=== PATIENT | male | born 2005 ===

== ENCOUNTER 2024-11-19 14:02 | Emergency (ER) | payer OTHER, SELFPAY ==
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
--- OUTSIDE RECORDS SUMMARY | 2024-11-19 14:04 | XMS_ITS | Clinical Summary ---
Author Organization [facility] [place] Address [facility] [place] [address] Care Team Providers Care Hands And Dial Inspector Name Role Phone Unknown, Notinfile Primary Care Provider Unavail able Allergies No known active allergies Medications No known medications Active Problems No known active problems Social History Tobacco Use Types Packs/Day Years Used Date Smoking Tobacco: Never Assessed Personal Safety Answer Date Recorded Getting School Help Needed Not on file 07/30 Sex and Gender Information Value Date Recorded Sex Assigned at Not on file Legal Sex Male 12:15 PM COMPONENT TECHNICIAN Gender Identity Not on file Sexual Orientation Not on file Last Filed Vital Signs Vital Sign Reading Time Taken Comments Blood Pressure 140/90 03/25/2023 6:34 PM COMPONENT TECHNICIAN Pulse 89 03/25/2023 6:34 PM COMPONENT TECHNICIAN Temperature 37.7 C (99.9 F) 03/25/2023 6:34 PM COMPONENT TECHNICIAN Respiratory Rate 26 03/25/2023 6:34 PM COMPONENT TECHNICIAN Oxygen Saturation 99% 03/25/2023 6:34 PM COMPONENT TECHNICIAN Inhaled Oxygen Concentration - - Weight 92.1 kg (203 lb) 03/25/2023 6:34 PM COMPONENT TECHNICIAN Height - - Body Mass Index - - Plan of Treatment Health Maintenance Due Date Last Done Comments Depression Screening 2003 Hepatitis C Screening 2003 Meningococcal B Vaccine (2 of 2 - Bexsero SCDM 2-dose series) 09/27/2019 03/29/2019 Regular Well Visit/Exam 18-64 2021 Covid-19 Vaccine ( season) 2024 10/27/2020, 10/06/2020 DTaP/Tdap/Td Vaccine (6 - Td or Tdap) 02/28/2024 02/27/2014, 01/24/2008, 2003, Additional history exists Influenza Vaccine (Season Ended) 2025 02/17/2012 Pneumococcal vaccine <65 Aged Out 004, 2003, 2003 No longer eligible based on patient's age to complete this topic Hepatitis B Screening Completed 01/13/2004 , 2003, 2003, Additional history exists Varicella Vaccines Completed 02/27/2014, 1 , 11/28/2008, Additional history exists HPV Vaccines Completed 03/29/2019, 11/29/2016 Meningococcal Vaccine Completed 03/29/2019, 014 Insurance [employer]US Care Teams Hands And Dial Inspector Relationship Specialty Start Date End Date Unknown, Notinfile PCP - General 03/25/23
--- OUTSIDE RECORDS SUMMARY | 2024-11-19 14:04 | XMS_ITS | Referral Summary ---
Author Organization [facility] Address [address] [place] [id number] Care Team Providers Care Radioisotope Technologist Name Role Phone Unknown, Notinfile Primary Care [...] on file Legal Sex Male 12:15 PM VP INTEGRATION Gender Identity Not on file Sexual Orientation Not on file Last Filed Vital Signs Vital Sign Reading Time Taken Comments Blood Pressure 140/90 03/25/2023 6:34 PM VP INTEGRATION Pulse 89 03/25/2023 6:34 PM VP INTEGRATION Temperature 37.7 C (99.9 F) 03/25/2023 6:34 PM VP INTEGRATION Respiratory Rate 26 03/25/2023 6:34 PM VP INTEGRATION Oxygen Saturation 99% 03/25/2023 6:34 PM VP INTEGRATION Inhaled Oxygen Concentration - - Weight 92.1 kg (203 lb) 03/25/2023 6:34 PM VP INTEGRATION Height - - Body Mass Index - - Plan of Treatment Not on file [place] [address] Care Teams Radioisotope Technologist Relationship Specialty Start Date End Date Unknown, Notinfile PCP - General 03/25/23
--- OUTSIDE RECORDS SUMMARY | 2024-11-19 14:04 | XMS_ITS | Clinical Summary ---
Author Organization [facility] Address [address] [place] [address] Care Team Providers Care B2B Sales Executive Name Role Phone Unavailable Primary Care Provider Unavailabl e Source Comments [facility],non-owned Affiliates and Associated Physician Practices is amultiple site organization consisting of ambulatory clinics and hospital sitesin [place], [place], [place] and [place]. This disclosure is being madepursuant to the Care Everywhere program and may not contain all information available regarding this patient. Last updated 18.[facility] Allergies No known active allergies Medications * Be aware that medications may not be up to date on this document. Alwaysverify current medications with the patient. clindamycin (CLEOCIN) 75 MG/5ML solution 03/08/2016 Act gabrielle chlorhexidine gluconate (HIBICLENS) 4 % solution Apply to affected area 2 times daily 400 mL 3 03/12/2016 Active Active Problems Problem Noted Date Diagnosed Date Ingrown left big toenail 03/12/2016 Social History Tobacco Use Types Packs/Day Years Used Date Smoking Tobacco: Never Assessed Sex and Gender Information Value Date Recorded Sex Assigned at Not on file Legal Sex Male 10:12 AM CDT Gender Identity Not on file Sexual Orientation Not on file Last Filed Vital Signs Vital Sign Reading Time Taken Comments Blood Pressure - - Pulse - - Temperature - - Respiratory Rate - - Oxygen Saturation - - Inhaled Oxygen Concentration - - Weight 70.4 kg (155 lb 3.3 oz) 03/12/2016 9:45 A M CDT Height 169.8 cm (5' 6.85) 03/12/2016 9:45 AM CD T Body Mass Index 24.42 03/12/2016 9:45 AM CDT Plan of Treatment Health Maintenance Due Date Last Done Comments HIV SCREENING 2018 HPV VACCINE (1 - Male 3-dose series) 2018 MENINGOCOCCAL (Group B) VACC INE SHARED DECISION-MAKING (1 of 2 - Standard) 2019 HEPATITIS C SCREENING 12/29/2020 DTAP/TDAP/TD VACCINES (1 - Tdap) 2022 HEPATITIS B VACCINE (1 of 3 - 19+ 3-dose series) 2022 COVID-19 VACCINE (1 - 2023-2 5 season) 2024 DEPRESSION SCREENING 05/16/2024 INFLUENZA VACCINE (Season Ended) 2025 ZOSTER VACCINE (1 of 2) 2053 HIB VACCINE Aged Out No longer eligi ble based on patient's age to complete this topic MENINGOCOCCAL GROUPS A/C/Y/W VACCINE Aged Out No longer eligible b ased on patient's age to complete this topic PNEUMOCOCCAL VACCINE Aged Out No long er eligible based on patient's age to complete this topic Insurance
[2024-11-19 14:36] VITALS: BP 147/83; PULSE 79; RESP 16; TEMP 36.8; O2SAT 98
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
[2024-11-19 16:59] VITALS: BP 140/65; PULSE 87; RESP 18; TEMP 36.9; O2SAT 100
--- OUTSIDE RECORDS SUMMARY | 2024-11-19 17:43 | XMS_ITS | Clinical Summary ---
Author Organization [facility] Address [address] [place] [address] Care Team Providers Care Dag Sprayer Name Role Phone Unavailable Primary Care Provider Unavailabl e Source Comments [facility],non-owned Affiliates and Associated Physician Practices is amultiple site organization consisting of ambulatory clinics and hospital sitesin [place], [place], [place] and [place]. This disclosure is being madepursuant to the Care Everywhere program and may not contain all information available regarding this patient. Last updated 18.[facility] Allergies No known active allergies Medications * [...]
--- OUTSIDE RECORDS SUMMARY | 2024-11-19 17:43 | XMS_ITS | Clinical Summary ---
Author Organization [facility] [place] Address [facility] [place] [address] Care Team Providers Care Sack Repairer Name Role Phone Unknown, Notinfile Primary Care [...] on file Legal Sex Male 12:15 PM PRODUCTION MACHINE COMPUTER OPERATOR Gender Identity Not on file Sexual Orientation Not on file Last Filed Vital Signs Vital Sign Reading Time Taken Comments Blood Pressure 140/90 03/25/2023 6:34 PM PRODUCTION MACHINE COMPUTER OPERATOR Pulse 89 03/25/2023 6:34 PM PRODUCTION MACHINE COMPUTER OPERATOR Temperature 37.7 C (99.9 F) 03/25/2023 6:34 PM PRODUCTION MACHINE COMPUTER OPERATOR Respiratory Rate 26 03/25/2023 6:34 PM PRODUCTION MACHINE COMPUTER OPERATOR Oxygen Saturation 99% 03/25/2023 6:34 PM PRODUCTION MACHINE COMPUTER OPERATOR Inhaled Oxygen Concentration - - Weight 92.1 kg (203 lb) 03/25/2023 6:34 PM PRODUCTION MACHINE COMPUTER OPERATOR Height - - Body Mass Index - [...] Vaccine Completed 03/29/2019, 014 Insurance [employer] [facility] Address: [address] [address] [place] [address] Care Teams Sack Repairer Relationship Specialty Start Date End Date Unknown, Notinfile PCP - General 03/25/23
--- OUTSIDE RECORDS SUMMARY | 2024-11-19 17:43 | XMS_ITS | Referral Summary ---
Author Organization [facility] Address [address] [place] [id number] Care Team Providers Care Financial Operations Clerk Name Role Phone Unknown, Notinfile Primary Care [...] on file Legal Sex Male 12:15 PM LAB ANIMAL TECHNICIAN Gender Identity Not on file Sexual Orientation Not on file Last Filed Vital Signs Vital Sign Reading Time Taken Comments Blood Pressure 140/90 03/25/2023 6:34 PM LAB ANIMAL TECHNICIAN Pulse 89 03/25/2023 6:34 PM LAB ANIMAL TECHNICIAN Temperature 37.7 C (99.9 F) 03/25/2023 6:34 PM LAB ANIMAL TECHNICIAN Respiratory Rate 26 03/25/2023 6:34 PM LAB ANIMAL TECHNICIAN Oxygen Saturation 99% 03/25/2023 6:34 PM LAB ANIMAL TECHNICIAN Inhaled Oxygen Concentration - - Weight 92.1 kg (203 lb) 03/25/2023 6:34 PM LAB ANIMAL TECHNICIAN Height - - Body Mass Index - - Plan of Treatment Not on file Insurance [employer] Care Teams Financial Operations Clerk Relationship Specialty Start Date End Date Unknown, Notinfile PCP - General 03/25/23
--- NOTE | 2024-11-19 18:35 | PC.NURSE ---
Wound care completed on patient. Cleansed with iodine and NS. Covered with ointment, telfa, and gauze.
[2024-11-19 18:36] VITALS: BP 121/62; PULSE 65; RESP 18; TEMP 36.9; O2SAT 100
== END 2024-11-19 18:41 | disposition home or self-care (01) ==
PROVIDERS: Emergency Provider Physician Assistant
DX: S09.90XA Unspecified injury of head, initial encounter (principal); S40.812A Abrasion of left upper arm, initial encounter; S40.811A Abrasion of right upper arm, initial encounter; V00.131A Fall from skateboard, initial encounter
CPT/HCPCS: 70450; 72125; 99284